=== PATIENT | male | born 1965 | race Caucasian/White ===

== ENCOUNTER 2016-05-31 07:21 | Inpatient (IN) | payer MEDICARE ==
--- NOTE | ~2016-05-31 | DS ---
Unit #: [id number] #: [id number] Patient: CAROLINE PERDOMO [id number] [facility] [address] [place] [address] [id number] I MR#: [id number] NAME: CAROLINE PERDOMO. ROOM: P202 Age: 51 Sex: M Admission Date: 05/31/2016 : 1965 Discharge Date: 06/04/2016 Attending Physician: Valdemar Wen M.D. Primary Care Physician: Generic Doctor Not In System DISCHARGE SUMMARY REASON FOR ADMISSION Mr. Perdomo is a 51-year-old man who reported increasing use of alcohol, depression, hopelessness, and suicidal ideation. He was unable to contract for safety and was admitted for stabilization. DIAGNOSTIC STUDIES LABORATORY RESULTS: Please see hospital chart for laboratory studies which were within normal limits. HOSPITAL COURSE The patient was admitted and placed on suicide precautions and the alcohol detox protocol. Effexor and Remeron were restarted, and Rexulti 0.5 mg for 2 nights and then 1 mg afterwards was added for antidepressant supplementation. The patient had active withdrawal symptoms, but participated appropriately in unit groups and activities. On the date of discharge, he was able to contract for safety with no further suicidal ideation, intent, or plan. DISCHARGE DIAGNOSES AXIS I: Alcohol dependence with withdrawal, uncomplicated; major depressive disorder. AXIS II: No diagnosis. AXIS III: Hypertension, gastroesophageal reflux disease. AXIS IV: AXIS V: DISCHARGE INSTRUCTIONS Follow up with count includes the [facility] mental health and chemical dependency programming in [place], [place] as well as his primary care physician. DISCHARGE MEDICATIONS Remeron 30 mg at bedtime for depression, Effexor XR 150 mg daily for depression, Rexulti 1 mg at bedtime for antidepressant supplementation. Primary care medicines included Keppra 500 mg b.i.d. for seizures and Neurontin 800 mg q.i.d. for seizures. CONDITION AT DISCHARGE Improved. PROGNOSIS Good. Unit #: [id number] #: [id number] Patient: CAROLINE PERDOMO DIET AND ACTIVITY Per primary care doctor. Dictated by... Valdemar Wen M.D. [facility]/veel TD: 06/04/2016 13:12 JOB #: [id number] DISCHARGE SUMMARY Page 1 of 1 X Valdemar Wen MD DISCHARGE SUMMARY
--- NOTE | ~2016-05-31 | PN ---
Unit #: [id number] #: [id number] Patient: CAROLINE PERDOMO [id number] [facility] [address] [place] [address] [id number] I MR#: [id number] NAME: CAROLINE PERDOMO. ROOM: P202 Age: 51 Sex: M Admission Date: 05/31/2016 : 1965 Attending Physician: Valdemar Wen M.D. Admitting Physician: Valdemar Wen M.D. Primary Care Physician: Generic Doctor Not In System [facility] PROGRESS NOTES DATE OF SERVICE 06/02/2016 DISCUSSION Mr. Perdomo started on Rexulti last night with no significant adverse side effects. His mood remains depressed with congruent affect. He is alert and fully oriented with no active psychosis. He does have ongoing alcohol detox symptomatology today but is attempting to participate in psychotherapy groups and activities. ASSESSMENT Alcohol dependence, major depression. PLAN Continue alcohol detox protocol and changes in psychiatric medication. Dictated by... David Dang/luly TD: 06/04/2016 01:12 JOB #: [id number] [facility] PROGRESS NOTES Page 1 of 1 X Valdemar Wen MD PROGRESS NOTE
--- NOTE | ~2016-05-31 | HP ---
Unit #: [id number] #: [id number] Patient: BRIAN LIMA [id number] [place] [address] [id number] MR#: [id number] NAME: BRIAN LIMA. ROOM: P202 Age: 51 Sex: M Admission Date: 05/31/2016 : 1965 Attending Physician: Valdemar Wen M.D. Admitting Physician: Valdemar Wen M.D. Primary Care Physician: Generic Doctor Not In System HISTORY AND PHYSICAL HISTORY OF PRESENT ILLNESS Brian is a 51 year old admitted to [address] [place] [address] because of his abuse of alcohol. He is detoxing. PAST MEDICAL HISTORY 1. Long history of alcohol abuse. 2. Seizure disorder. PAST SURGICAL HISTORY 1. Right shoulder. 2. Right hip replaced. 3. Appendectomy. ALLERGIES No known drug allergies. SOCIAL HISTORY Smokes 1 pack per day. Drinks a case of beer plus on a daily basis and denies illicit drug use. FAMILY HISTORY Medically noncontributory. REVIEW OF SYSTEMS CONSTITUTIONAL: No fever or chills. HEENT: Denies any sore throat, ear pain or runny nose. CARDIOVASCULAR: Denies chest pain, irregular heart rhythm or palpitations. CHEST: Denies shortness of breath or cough. No hemoptysis. GASTROINTESTINAL: Denies nausea, vomiting, diarrhea or chronic constipation. ENDOCRINE: Denies history of increased thirst or urination. No recent significant weight loss or gain. GENITOURINARY: Denies dysuria, frequency, or hematuria. SKIN: Denies any rashes. HEMATOLOGIC: Denies history of increased bleeding or bruising. MUSCULOSKELETAL: Denies any hot, swollen joints. No generalized muscle pain. NEUROLOGIC: Denies problems with vision or speech. No frequent, severe headaches. No numbness, tingling or weakness in any extremities. Denies loss of bladder or bowel control. CURRENT MEDICATIONS 1. Detox protocol. Unit #: [id number] #: [id number] Patient: BRIAN LIMA 2. Effexor 150 mg daily. 3. Remeron 30 mg q.h.s. 4. Seroquel 100 mg q.h.s. 5. Keppra 500 mg b.i.d. 6. Neurontin 800 mg q.i.d. PHYSICAL EXAMINATION GENERAL: Alert, well-nourished, in no apparent distress. VITAL SIGNS: Blood pressure 146/82, heart rate 100, respirations 16, temperature 98.6. WEIGHT: 180. HEIGHT: 5 feet 6 inches. SKIN: Warm and dry without rash or lesion. HEENT: Normocephalic. TMs not viewed. Oral and nasal passages clear. Conjunctivae clear. PERRLA. EOMs intact. NECK: Supple without lymphadenopathy or thyromegaly. HEART: Regular rate and rhythm without murmur. LUNGS: Clear. ABDOMEN: Soft, nontender. : Not done. EXTREMITIES: No evidence of cyanosis, clubbing or edema. Moves all without focal deficit. NEUROLOGICAL: Grossly within normal limits. Cranial Nerves: II: Visual ceballos are intact. III, IV AND : Extraocular movements are intact. Pupils are equal, round and reactive to light. V: Facial sensation is grossly normal. VII: Facial movements and expression are normal. VIII: Auditory acuity grossly intact. IX, X: Uvula is midline. Phonation is normal. XI: Patient shrugs shoulders and turns head normally. XII: Tongue protrudes in the midline. Sensory and Motor Function: Sensory and motor sensation is grossly normal. Motor: moves all extremities well. Coordination: Gait is normal. Deep Tendon Reflexes: Intact. IMPRESSION Psychiatric admission. RECOMMENDATIONS PSYCHIATRIC: Per psychiatrist. MEDICAL: 1. See no contraindications to participate in facility's activities. 2. Detox per protocol. 3. Continue Keppra. MEDICAL PROGNOSIS Good. MEDICAL CONDITION Stable. Dictated by... Charis Garrison P.A.-C. for Nereida Fritz M.D. Unit #: [id number] #: [id number] Patient: BRIAN LIMA COLLEEN/carey TD: 05/31/2016 20:49 JOB #: [id number] HISTORY AND PHYSICAL Page 1 of 1 X Charis Garrison HISTORY AND PHYSICAL
--- NOTE | ~2016-05-31 | PN ---
Unit #: [id number] #: [id number] Patient: CAROLINE PERDOMO [id number] [facility] [address] [place] [address] [id number] MR#: [id number] NAME: CAROLINE PERDOMO. ROOM: P202 Age: 51 Sex: M Admission Date: 05/31/2016 : 1965 Attending Physician: Valdemar Wen M.D. Admitting Physician: Valdemar Wen M.D. Primary Care Physician: Generic Doctor Not In System [facility] PROGRESS NOTES DATE OF SERVICE: 06/01/2016 DISCUSSION Mr. Perdomo has active detox symptoms today and slept erratically over night. He discusses the possibility of getting on the Vivitrol injection after discharge, and I explained the indications and process for this treatment option. He also wants to try the medication Rexulti, which is newly available in the market for antidepressant supplementation. We discussed risks and benefits of this medication and he did agree to a trial which I explained would begin with a low dose for a couple of days and gradually increased. He is alert and fully oriented with depressed mood and anxious affect. Memory and concentration are fair and there is no psychosis, confusion, or delirium. He has not had any seizure activity since admission. ASSESSMENT Alcohol dependence, major depression. PLAN We will add Rexulti beginning at 0.5 mg at bedtime for 2 days and increasing to 1 mg at bedtime after that. He will continue on the detox protocol and suicide precautions. Dictated by... David Dang/niyah TD: 06/01/2016 13:21 JOB #: [id number] [facility] PROGRESS NOTES Page 1 of 1 X Valdemar Wne MD PROGRESS NOTE
--- NOTE | ~2016-05-31 | PN ---
Unit #: [id number] #: [id number] Patient: CAROLINE PERDOMO [id number] [facility] [address] [place] [address] [id number] I MR#: [id number] NAME: CAROLINE PERDOMO. ROOM: P202 Age: 51 Sex: M Admission Date: 05/31/2016 : 1965 Attending Physician: Valdemar Wen M.D. Admitting Physician: Valdemar Wen M.D. Primary Care Physician: Generic Doctor Not In System [facility] DATE OF SERVICE 06/03/2016 DISCUSSION Mr. Perdomo is mildly tremulous today, and notes that his alcohol detox has reached the point where he steps down on the Ativan dose. I explained this process to him and he agreed that it was important. He is tolerating Rexulti with no adverse side effects and is getting the full 1 mg dose tonight. He is alert and fully oriented today. His memory and concentration are fair to good. His thought processes are logical with no active psychosis, confusion, disorientation or delirium. ASSESSMENT Alcohol dependence, major depression. PLAN Continue current treatment plan. Dictated by... Valdemar Wen M.D. JOAQUÍN/luly TD: 06/04/2016 04:17 JOB #: [id number] [facility] PROGRESS NOTES Page 1 of 1 X Valdemar Wen MD PROGRESS NOTE
--- NOTE | ~2016-05-31 | PA ---
Unit #: [id number] #: [id number] Patient: CAROLINE PERDOMO [id number] [facility] [address] [place] [address] [id number] I MR#: [id number] NAME: CAROLINE PERDOMO. ROOM: P202 Age: 51 Sex: M Admission Date: 05/31/2016 : 1965 Date of Assessment: 05/31/2016 Attending Physician: Valdemar Wen M.D. Admitting Physician: Valdemar Wen M.D. Primary Care Physician: Generic Doctor Not In System PSYCHIATRIC ASSESSMENT DATE OF ASSESSMENT 05/31/2016. INFORMANTS The patient, reliable; OLOP, reliable. CHIEF COMPLAINT Detox. HISTORY OF PRESENT ILLNESS Mr. Perdomo is a 51-year-old man who reports increasing use of alcohol to excess. He was shaky and tremulous upon presentation and stated that he was having active withdrawal symptoms. He reported history of adverse effects from withdrawal such as hallucinations and could not contract for safety outside of the hospital with no active suicidal ideation. [facility]. PAST PSYCHIATRIC HISTORY This is Mr. Perdomo's first admission to this facility for inpatient detox. He states that he has received antidepressant medications from his primary care physician. FAMILY PSYCHIATRIC HISTORY There is a family history of alcoholism. SOCIAL HISTORY The patient reported some impairment in his social relationships, but would not be more specific. We will seek further social history and information through his unit social services director. PAST MEDICAL HISTORY The patient has a history of hypertension, some neuropathy, and GERD. MEDICATIONS Please see MAR. ALLERGIES No known medication allergies. SUBSTANCE ABUSE HISTORY As noted the patient has been drinking heavily and is having active detox symptomatology. Unit #: [id number] #: [id number] Patient: CAROLINE PERDOMO MENTAL STATUS EXAMINATION Mr. Perdomo presented as a disheveled man who appeared older than his stated age. He was cooperative with the examination. His speech was tremulous with active musculoskeletal agitation and anxiety. He also appeared mildly diaphoretic. His mood was anxious with a congruent affect. He was alert and fully oriented. His memory and concentration were fair. Thought processes were logical and nonpsychotic. He had no suicidal ideation, intent, or plan. Insight and judgment were fair. Fund of knowledge and abstraction were intact. ASSETS AND LIABILITIES The patient is voluntary for treatment and has active primary care contact. Liabilities include active alcohol detox and difficulty tolerating in the outpatient setting. ADMITTING DIAGNOSES AXIS I: Alcohol dependence with withdrawal, uncomplicated, F10.230. AXIS II: No diagnosis. AXIS III: Hypertension, gastroesophageal reflux disease, active alcohol withdrawal. AXIS IV: AXIS V: PSYCHIATRIC PLAN The patient was admitted and placed on the alcohol detox protocol. His home medications will be explored and restarted. He will enroll in dual diagnosis groups and activities. TREATMENT GOALS Resolution of intoxication, establishment of sobriety, improvement in insight, and improvement in coping skills. DISCHARGE PLANNING Follow up with chemical dependence programing of the patient's choice. ESTIMATED LENGTH OF STAY 5 days. Dictated by... Valdemar Wen M.D. [facility]/niyah TD: 05/31/2016 19:01 JOB #: [id number] Unit #: [id number] #: [id number] Patient: CAROLINE PERDOMO PSYCHIATRIC ASSESSMENT Page 1 of 1 X Valdemar Wen MD PSYCHIATRIC ASSESSMENT
[2016-06-01 09:29] LABS: BASOPHIL# 0.1 X10e3 (0-0.3); EOSINOPHIL# 0.3 X10e3 (0-0.7); EOSINOPHIL% 3.5 % (0.0-7.0); HEMATOCRIT 40.7 % (38.0-50.0); HEMOGLOBIN 13.2 gm/dL (13.0-16.0); LYMPHOCYTE# 2.2 X10e3 (1.0-3.5); LYMPHOCYTE% 29.7 % (17.0-45.0); MEAN CELL VOLUME 85.5 FL (83-96); MEAN CORPUSCULAR HEMOGLOBIN 27.7 PG (28-34); MEAN CORPUSCULAR HGB CONC 32.4 g/dL (30-36); MONOCYTE# 0.6 X10e3 (0-1.0); MONOCYTE% 8.1 % (3.0-12.0); NEUTROPHIL# 4.3 X10e3 (1.5-7.1); NEUTROPHIL% 57.7 % (40-75); PLATELET COUNT 434 X10e3 (140-420); RED BLOOD COUNT 4.76 X10e (3.90-5.60); RED CELL DISTRIBUTION WIDTH 15.4 % (11.0-15.5); WHITE BLOOD COUNT 7.5 X10e3 (4.0-10.5)
[2016-06-01 09:40] LABS: URINE APPEARANCE CLEAR; URINE BILIRUBIN NEG (NEG); URINE BLOOD 1+ (NEG); URINE COLOR DK YELLOW; URINE GLUCOSE NEG (NEG); URINE KETONE NEG (NEG); URINE LEUKOCYTE ESTERASE 1+ (NEG); URINE NITRATE NEG (NEG); URINE PH 6.5 (5-8); URINE PROTEIN NEG (NEG); URINE SPECIFIC GRAVITY 1.007 (1.003-1.035); URINE UROBILINOGEN 0.2 MG/DL (NEG)
[2016-06-01 09:43] LABS: URINE BACTERIA AUWI NEG (NEGATIVE); URINE SQUAMOUS EPITHELIAL CELL NONE SEEN /[HPF]
[2016-06-01 09:49] LABS: DIFF IND NO
[2016-06-01 10:06] LABS: AMPHETAMINE NEG (NEG); BARBITURATES NEG (NEG); BENZODIAZEPINES POS (NEG); COCAINE NEG (NEG); MARIJUANA NEG (NEG); OPIATES NEG (NEG); TRICYCLIC ANTIDEPRESSANTS NEG (NEG); U METHADONE NEG (NEG)
== END 2016-06-04 16:10 | disposition home or self-care (01) | DRG 897 ==
LOC: P2S 07:21
PROVIDERS: Psychiatry & Neurology Psychiatry
PROC: HZ2ZZZZ Detoxification Services for Substance Abuse Treatment (ICD-10-PCS; principal; 2016-05-31)
DX: F10.230 Alcohol dependence with withdrawal, uncomplicated (principal); I10 Essential (primary) hypertension; K21.9 Gastro-esophageal reflux disease without esophagitis; Z81.1 Family history of alcohol abuse and dependence; Z96.641 Presence of right artificial hip joint; F17.210 Nicotine dependence, cigarettes, uncomplicated; F32.9 Major depressive disorder, single episode, unspecified
CPT/HCPCS: 80307; 81003; 85025; 86592

== ENCOUNTER 2016-06-07 23:57 | Inpatient (IN) | payer MEDICARE ==
--- NOTE | ~2016-06-07 | DS ---
Unit #: [id number] #: [id number] Patient: CAROLINE PERDOMO [id number] [facility] [address] [place] [address] [id number] I MR#: [id number] NAME: CAROLINE PERDOMO. ROOM: P212 Age: 51 Sex: M Admission Date: 06/07/2016 : 1965 Discharge Date: 06/11/2016 Attending Physician: Valdemar Wen M.D. Primary Care Physician: Primary Care Physician No DISCHARGE SUMMARY REASON FOR ADMISSION Mr. Perdomo is a 51-year-old man who just left this facility, but had immediate relapse on alcohol abuse following an argument and break-up with his girlfriend. He had active detox symptomatology and was admitted for stabilization. DIAGNOSTIC STUDIES LABORATORY RESULTS: Please see hospital chart. HOSPITAL COURSE The patient was admitted and placed on the alcohol detox protocol. He had further 3 days of uneventful alcohol detox with no disorientation, confusion, or other difficulties and his physical examination was reported unchanged. On the date of discharge, he had re-established sobriety and was able to contract for safety in the outpatient setting. DISCHARGE DIAGNOSES AXIS I: Alcohol dependence with withdrawal, uncomplicated; major depressive disorder. AXIS II: No diagnosis. AXIS III: Hypertension and gastroesophageal reflux disease. AXIS IV: AXIS V: DISCHARGE INSTRUCTIONS Follow up with chemical dependency programing in [place], [place] as well as his primary care physician. DISCHARGE MEDICATIONS Remeron 30 mg at bedtime for depression, Effexor XR 150 mg daily for depression, Rexulti 1 mg at bedtime for antidepressant supplementation. Primary care medicines were Keppra 500 mg b.i.d. for withdrawal seizures and Neurontin 800 mg q.i.d. for seizures. CONDITION AT DISCHARGE Improved. PROGNOSIS Fair. DIET AND ACTIVITY Per primary care doctor. Unit #: [id number] #: [id number] Patient: CAROLINE PERDOMO Dictated by... Valdemar Wen M.D. [facility]/niyah TD: 07/30/2016 11:33 JOB #: [id number] DISCHARGE SUMMARY Page 1 of 1 X Valdemar Wen MD X DISCHARGE SUMMARY
--- NOTE | ~2016-06-07 | HP ---
Unit #: [id number] #: [id number] Patient: BRIAN LIMA [id number] [facility] [address] [place] [address] [id number] I MR#: [id number] NAME: BRIAN LIMA. ROOM: P212 Age: 51 Sex: M Admission Date: 06/07/2016 : 1965 Attending Physician: Valdemar Wen M.D. Admitting Physician: Valdemar Wen M.D. Primary Care Physician: Primary Care Physician No HISTORY AND PHYSICAL NOTE Brian is a 51 year old admitted to [address] [place] [address] because of his continued abuse of alcohol. He was just discharged from this facility after treatment for the same. The patient was seen and H and P dated 05/31/2016 was reviewed. This is current. No changes. Please see H and P dated 05/31/2016. Dictated by... Charis Garrison P.A.-C. for David Uribe/luly TD: 06/08/2016 23:32 JOB #: [id number] HISTORY AND PHYSICAL Page 1 of 1 X Charis Garrison HISTORY AND PHYSICAL
--- NOTE | ~2016-06-07 | PA ---
Unit #: [id number] #: [id number] Patient: CAROLINE PERDOMO [id number] [facility] [address] [place] [address] [id number] MR#: [id number] NAME: CAROLINE PERDOMO. ROOM: P212 Age: 51 Sex: M Admission Date: 06/07/2016 : 1965 Date of Assessment: Attending Physician: Valdemar Wen M.D. Admitting Physician: Valdemar Wen M.D. Primary Care Physician: Primary Care Physician No PSYCHIATRIC ASSESSMENT INFORMANTS Patient, reliable; OLOP, reliable. CHIEF COMPLAINT Alcohol relapse. HISTORY OF PRESENT ILLNESS Mr. Perdomo is a 51-year-old man, who was recently discharged from this facility, but immediately relapsed on alcohol after his girlfriend reported she was leaving him. He had active withdrawal symptoms in the emergency room and was readmitted to [facility] for further detox and treatment. PAST PSYCHIATRIC HISTORY As noted, the patient was recently discharged from this facility. He has been taking antidepressant medications from his primary care physician. FAMILY PSYCHIATRIC HISTORY Alcoholism. SOCIAL HISTORY The patient has some recent impairment in social relationships and his girlfriend recently announced that she was leaving. PAST MEDICAL HISTORY Hypertension, neuropathy, and GERD. MEDICATIONS Please see MAR. ALLERGIES No known medication allergies. SUBSTANCE ABUSE HISTORY The patient drinks heavily and is having active detox. MENTAL STATUS EXAMINATION Mr. Perdomo presented as a disheveled man, appearing older than his stated age. Speech was spontaneous and easily understood. Musculoskeletal examination demonstrated mild agitation. His mood was anxious and depressed with a congruent affect. He was alert and fully oriented. Memory and concentration were fair to good. Thought processes were logical with no psychosis, disorientation, or confusion and he had no Unit #: [id number] #: [id number] Patient: CAROLINE PERDOMO suicidal ideation, intent, or plan. Insight and judgment were intact. Fund of knowledge and abstraction were intact. ASSETS The patient is voluntary for treatment and familiar with treatment resources in his area. LIABILITIES Include recent relapse and break-up with girlfriend. ADMITTING DIAGNOSES AXIS I: Alcohol dependence with withdrawal, uncomplicated. AXIS II: No diagnosis. AXIS III: Hypertension, gastroesophageal reflux disease. AXIS IV: AXIS V: PSYCHIATRIC PLAN The patient was admitted and placed on the alcohol detox protocol. He will enroll in psychotherapy groups and activities. We will consider antidepressant medication should it become clinically indicated. TREATMENT GOALS Resolution of intoxication, improvement in insight, and improvement in coping skills. DISCHARGE PLANNING Follow up with [facility]. ESTIMATED LENGTH OF STAY Five days. Dictated by... Valdemar Wen M.D. JOAQUÍN/niyah TD: 07/30/2016 12:19 JOB #: [id number] PSYCHIATRIC ASSESSMENT Page 1 of 1 X Valdemar Wen MD X PSYCHIATRIC ASSESSMENT
== END 2016-06-11 16:15 | disposition home or self-care (01) | DRG 897 ==
LOC: P2S 23:57
PROC: HZ2ZZZZ Detoxification Services for Substance Abuse Treatment (ICD-10-PCS; principal; 2016-06-07)
DX: F10.20 Alcohol dependence, uncomplicated (principal); F32.9 Major depressive disorder, single episode, unspecified